=== PATIENT | female | born 1980 | race Caucasian/White ===

== ENCOUNTER 2018-08-29 13:26 | Emergency (ER) | payer OTHER ==
[~2018-08-29] VITALS: Ht 177.8 cm; Wt 176.9 kg
[~2018-08-29 13:26] MED LIST: AMOX1TAB12 PO; TUSSI PRES-B L120 M1 PO
== END 2018-08-29 16:51 | disposition home or self-care (01) ==
LOC: ER 13:26
DX: S30.0XXA Contusion of lower back and pelvis, initial encounter (principal); W18.39XA Other fall on same level, initial encounter; Y93.89 Activity, other specified; Y92.091 Bathroom in other non-institutional residence as the place of occurrence of the external cause; Y99.8 Other external cause status

== ENCOUNTER 2022-08-18 13:16 | Emergency (ER) | payer OTHER ==
[~2022-08-18] VITALS: Ht 182.9 cm; Wt 181.4 kg
[2022-08-18] MEDS ORDERED: VERAPAMIL SR120 MG PO (13:22)
[2022-08-18] MEDS ORDERED: OSEL75CA PO (16:36)
== END 2022-08-18 16:52 | disposition home or self-care (01) ==
LOC: ER 13:16
DX: B34.9 Viral infection, unspecified (principal); J10.1 Influenza due to other identified influenza virus with other respiratory manifestations; Z20.822 Contact with and (suspected) exposure to COVID-19; I10 Essential (primary) hypertension

== ENCOUNTER 2023-02-20 22:07 | Emergency (ER) | payer OTHER ==
[~2023-02-20] VITALS: Ht 177.8 cm; Wt 181.4 kg
[~2023-02-20 22:07] MED LIST changes: +OSEL75CA PO; +VERAPAMIL SR120 MG PO
[2023-02-20] MEDS ORDERED: NORVASC5 MG (22:20)
[2023-02-21] MEDS ORDERED: KETO10TA2 PO (00:25)
[2023-02-21] MEDS ORDERED: NORFLEX100MG PO (00:25)
== END 2023-02-21 01:09 ==
LOC: ER 22:07
DX: M54.59 Other low back pain (principal)

== ENCOUNTER 2023-03-14 18:17 | Inpatient (IN) | payer OTHER ==
[~2023-03-14] VITALS: Ht 177.8 cm; Wt 181.4 kg
[~2023-03-14 18:17] MED LIST changes: +KETO10TA2 PO; +NORFLEX100MG PO; +NORVASC5 MG
[2023-03-14 20:14] LABS: HEMATOCRIT 44.6 % (39.0-48.0); HEMOGLOBIN 15.4 g/dL (13-16.00); MEAN CELL VOLUME 84.8 fL (80.0-100.00); MEAN CORPUSCULAR HEMOGLOBIN 29.2 pg (27.00-32.0); MEAN CORPUSCULAR HGB CONC 34.4 g/dl (32.0-36.0); PLATELET COUNT 251 K/uL (150-450); RED BLOOD COUNT 5.26 M/uL (4.00-6.00); RED CELL DISTRIBUTION WIDTH 14.1 % (11.5-14.5)
[2023-03-14 20:25] LABS: URINE APPEARANCE Clear; URINE BILIRRUBIN Negative (NEGATIVE); URINE BLOOD Moderate; URINE COLOR Dark Yellow; URINE GLUCOSE Negative (NEGATIVE); URINE LEUKOCYTE Negative; URINE NITRATE Negative; URINE PROTEIN 30 (NEGATIVE)
[2023-03-14 20:29] LABS: URINE BACTERIA 88.1 uL (0.0-1933); URINE EPITHELIAL CELLS 8.3 uL (0.0-38.8); URINE RBC 193.2 uL (0.0-20.8); URINE WBC 5.8 uL (0.0-23.2)
[2023-03-14 20:34] LABS: CALCIUM 8.2 mg/dL (8.5-10.1); CREATININE SERUM 0.86 mg/dL (0.70-1.30); GFR 98.49; POTASSIUM 3.88 mEq/L (3.5-5.1)
[2023-03-14 22:20] LABS: ABG PH 7.463 (7.35-7.45); ABG PO2 55.9 mmHg (80-100); ABG pCO2 35.9 mmHg (35-45); BASE EXCESS 1.7 mmol/l; BICARBONATE 25.1 mmol/l (23-25); SaO2 90.7 %; Tco2 26.2 mmol/l; o2 21 %
[2023-03-14 22:21] LABS: puncture site RADIAL RIGHT
[2023-03-15 02:42] LABS: INR 1.09; PARTIAL THROMBOPLASTIN TIME 34.8 SECONDS (22.0-34.0); PROTHROMBIN TIME 11.4 SECONDS (9.0-11.5)
[2023-03-15 06:19] LABS: ABG PH 7.425 (7.35-7.45); ABG PO2 73.4 mmHg (80-100); ABG pCO2 40.6 mmHg (35-45); BASE EXCESS 1.6 mmol/l
[2023-03-15 06:20] LABS: BICARBONATE 26.1 mmol/l (23-25); Tco2 27.3 mmol/l; allen test SATISFACTORY; o2 50 %; puncture site RADIAL RIGHT
[2023-03-16 19:12] LABS: ABG PH 7.474 (7.35-7.45)
[2023-03-16 19:13] LABS: ABG PO2 73.1 mmHg (80-100); ABG pCO2 37.1 mmHg (35-45); BASE EXCESS 3.2 mmol/l; BICARBONATE 26.7 mmol/l (23-25); SaO2 95.7 %; Tco2 27.8 mmol/l; allen test SATISFACTORY; o2 21 %; puncture site RADIAL RIGHT
[2023-03-17 12:19] LABS: HEMATOCRIT 48.5 % (39.0-48.0); HEMOGLOBIN 16.2 g/dL (13-16.00); MEAN CELL VOLUME 86.5 fL (80.0-100.00); MEAN CORPUSCULAR HEMOGLOBIN 28.9 pg (27.00-32.0); MEAN CORPUSCULAR HGB CONC 33.4 g/dl (32.0-36.0); PLATELET COUNT 358 K/uL (150-450); RED BLOOD COUNT 5.61 M/uL (4.00-6.00); RED CELL DISTRIBUTION WIDTH 14.1 % (11.5-14.5)
[2023-03-17 12:57] LABS: ALBUMIN 3.3 gm/dL (3.4-5.0); BILIRUBIN TOTAL 0.52 mg/dL (0.3-1.2); CALCIUM 9.1 mg/dL (8.5-10.1); CREATININE SERUM 0.74 mg/dL (0.70-1.30); GFR 117.14; GLOBULINA 3.5 G/DL (2.4-3.5); MAGNESIUM 2.2 mg/dL (1.8-2.4); PHOSPHOROUS 3.6 mg/dL (2.5-4.9); POTASSIUM 3.71 mEq/L (3.5-5.1); TOTAL PROTEIN 6.8 gm/dL (6.4-8.2)
[2023-03-17 12:58] LABS: C-REACTIVE PROTEIN 1.58 MG/DL (0.00-0.29)
== END 2023-03-17 16:50 | disposition home or self-care (01) | DRG 194 ==
LOC: ER 18:17 → SURH 23:02 → MEDJ 03-15 17:40
PROVIDERS: General Practice; Internal Medicine; Internal Medicine Infectious Disease; ADMIT Internal Medicine; ATTEND Internal Medicine
PROC: 8E0ZXY6 Isolation (ICD-10-PCS; principal; 2023-03-14)
PROC: BB24ZZZ Computerized Tomography (CT Scan) of Bilateral Lungs (ICD-10-PCS; 2023-03-14)
PROC: 3E0F7GC Introduction of Other Therapeutic Substance into Respiratory Tract, Via Natural or Artificial Opening (ICD-10-PCS; 2023-03-14)
PROC: 5A0945A Assistance with Respiratory Ventilation, 24-96 Consecutive Hours, High Flow/Velocity Cannula (ICD-10-PCS; 2023-03-14)
DX: J10.1 Influenza due to other identified influenza virus with other respiratory manifestations (principal); J45.901 Unspecified asthma with (acute) exacerbation; J98.11 Atelectasis; J20.9 Acute bronchitis, unspecified; I10 Essential (primary) hypertension

== ENCOUNTER 2023-03-31 19:56 | Emergency (ER) | payer OTHER ==
[~2023-03-31] VITALS: Ht 177.8 cm; Wt 181.4 kg
[2023-03-31 20:39] LABS: HEMATOCRIT 45.6 % (39.0-48.0); HEMOGLOBIN 15.4 g/dL (13-16.00); MEAN CORPUSCULAR HEMOGLOBIN 29.1 pg (27.00-32.0); MEAN CORPUSCULAR HGB CONC 33.9 g/dl (32.0-36.0); PLATELET COUNT 396 K/uL (150-450); RED BLOOD COUNT 5.31 M/uL (4.00-6.00); RED CELL DISTRIBUTION WIDTH 14.1 % (11.5-14.5)
[2023-03-31 20:59] LABS: CALCIUM 9.2 mg/dL (8.5-10.1); CREATININE SERUM 1.27 mg/dL (0.70-1.30); GFR 62.81; POTASSIUM 3.09 mEq/L (3.5-5.1)
[2023-03-31] MEDS ORDERED: MEDROLPACK PO (22:05)
== END 2023-03-31 22:11 | disposition home or self-care (01) ==
LOC: ER
PROVIDERS: General Practice
DX: G51.0 Bell's palsy (principal); I10 Essential (primary) hypertension